=== PATIENT | male | born 1990 | race Two or more races ===

== ENCOUNTER 2023-10-19 07:49 | Day surgery (SDC) | payer OTHER ==
[2023-10-15 11:09] LABS: PH,URINE 6.5 (5.0-8.0); URINE APPEARANCE Clear; URINE BILIRRUBIN Negative (NEGATIVE); URINE BLOOD Negative; URINE COLOR Yellow; URINE GLUCOSE Negative (NEGATIVE); URINE LEUKOCYTE Negative; URINE NITRATE Negative; URINE PROTEIN Negative (NEGATIVE)
[2023-10-15 11:10] LABS: URINE BACTERIA 8.8 uL (0.0-1933); URINE RBC 2.4 uL (0.0-20.8)
[2023-10-15 11:14] LABS: HEMATOCRIT 40.8 % (39.0-48.0); HEMOGLOBIN 13.8 g/dL (13-16.00); MEAN CELL VOLUME 91.5 fL (80.0-100.00); MEAN CORPUSCULAR HGB CONC 33.9 g/dl (32.0-36.0); PLATELET COUNT 200 K/uL (150-450); RED BLOOD COUNT 4.46 M/uL (4.00-6.00); RED CELL DISTRIBUTION WIDTH 13.8 % (11.5-14.5)
[2023-10-15 11:36] LABS: INR < 0.93; PARTIAL THROMBOPLASTIN TIME 27.9 SECONDS (22.0-34.0); PROTHROMBIN TIME 9.8 SECONDS (9.0-11.5)
[2023-10-15 11:43] LABS: ALBUMIN 4.2 gm/dL (3.4-5.0); BILIRUBIN TOTAL 0.5 mg/dL (0.3-1.2); CALCIUM 9.2 mg/dL (8.5-10.1); CREATININE SERUM 1.42 mg/dL (0.70-1.30); GFR 57.78; GLOBULINA 2.8 G/DL (2.4-3.5); POTASSIUM 4.61 mEq/L (3.5-5.1)
[~2023-10-19 07:49] MED LIST: NAPROXEN500 MG
[2023-10-19] MEDS ORDERED: CEFAZOLIN SODIUM 1,000 MG VIAL ONE ×2 (12:27→13:39)
[2023-10-19] MEDS ORDERED: CEFAZOLIN SODIUM 1,000 MG VIAL IV ONE (14:45)
[2023-10-19] MEDS ORDERED: ONDANSETRON HCL 2 MG/ML VIAL IV ONE (16:05)
[2023-10-19] MEDS ORDERED: ONDANSETRON HCL 2 MG/ML VIAL ONE (16:10)
== END 2023-10-19 17:10 | disposition home or self-care (01) ==
LOC: CIR.AMB 07:49
PROVIDERS: ATTEND Orthopaedic Surgery Hand Surgery
DX: S62.324A Displaced fracture of shaft of fourth metacarpal bone, right hand, initial encounter for closed fracture (principal); S62.326A Displaced fracture of shaft of fifth metacarpal bone, right hand, initial encounter for closed fracture; S63.064A Dislocation of metacarpal (bone), proximal end of right hand, initial encounter